=== PATIENT | female | born 1960 | race Caucasian/White ===

== ENCOUNTER 2023-07-08 12:41 | Outpatient (CLI) | payer BC ==
[2023-07-08 14:32] LABS: #Basophils 0.05 10x3/uL (0.0-0.2); #Eosinphils 0.02 10x3/uL (0.0-0.5); #Monocytes 0.49 10x3/uL (0.0-1.1); #Neutrophils 4.25 10x3/uL (1.5-8.4); %Basophils 0.8 % (0.0-2.0); %Eosinophils 0.3 % (0.0-6.0); %Monocytes 8.2 % (0.0-10.0); %Neutrophils 71.5 % (40.0-75.0); Hematocrit 43.5 % (34.9-44.5); Mean Corpuscular HGB CONC 34.5 g/dL (32.0-36.0); Mean Corpuscular Volume 101.6 fl (81.6-98.3); Mean Platelet Volume 9.8 fl (7.4-10.4); Platelet Count 271 10x3/uL (150-450); RBC Distribution Width 11.7 % (11.5-14.5); Red Blood Cell (RBC) Count 4.28 10x6/uL (3.90-5.03)
[2023-07-08 14:33] LABS: Anion Gap 14 mmol/L (10-20); BUN (Urea Nitrogen) 8 mg/dL (9.8-20.1); Calc. Creatinine Clearance 0 mL/min (70-130); Calcium 9.8 mg/dL (7.8-10.44); Carbon Dioxide 24 mmol/L (23-31); Chloride 104 mmol/L (98-107); Estimated GFR 99; Glucose 84 mg/dL (80-115); Potassium 4.3 mmol/L (3.5-5.1); Sodium 138 mmol/L (136-145)
== END 2023-07-08 12:42 | disposition home or self-care (01) ==
LOC: LABBT 12:41
PROVIDERS: ATTEND Orthopaedic Surgery Hand Surgery
DX: Z01.818 Encounter for other preprocedural examination (principal); S62.342A Nondisplaced fracture of base of third metacarpal bone, right hand, initial encounter for closed fracture; M72.0 Palmar fascial fibromatosis [Dupuytren]
CPT/HCPCS: 80048; 85025; 93005; 93010

== ENCOUNTER 2023-07-11 05:40 | Day surgery (SDC) | payer BC ==
[2023-07-08 13:50] VITALS: BMI 21.9
[2023-07-11] MEDS ORDERED: Bacitracin Zinc Ointment 30 gm TUBE ONE (06:43)
[2023-07-11] MEDS ORDERED: Bupivacaine PF 0.5% 30 ML VIAL ONE (06:43)
[2023-07-11] MEDS ORDERED: PROPOFOL 20 ML ONE (06:46)
[2023-07-11] MEDS ORDERED: Lidocaine 1% PF 5 ML VIAL ONE (06:46)
[2023-07-11] MEDS ORDERED: fentaNYL PF 100 MCG/2 ML SYRINGE ONE (06:46)
[2023-07-11] MEDS ORDERED: Ondansetron PF 4 MG/2 ML Vial ONE (06:46)
[2023-07-11] MEDS ORDERED: Midazolam HCl 2 mg/2 ml Vial ONE (06:46)
[2023-07-11] MEDS ORDERED: Dexamethasone 20 MG/5 ML VIAL ONE (06:46)
[2023-07-11] MEDS ORDERED: Lidocaine 2% 6 ML (Jelly) SYR ONE (06:48)
[2023-07-11] MEDS ORDERED: Sodium Chloride 0.9% 100 ML ONE (06:50)
[2023-07-11] MEDS ORDERED: CEFAZOLIN 2 GM VIAL ONE (06:50)
[2023-07-11] MEDS ORDERED: Ketorolac Tromethamine 30 MG (1 mL) VIAL ONE ×2 (08:39→08:49)
== END 2023-07-11 10:07 | disposition home or self-care (01) ==
LOC: SDC 05:40
PROVIDERS: ATTEND Orthopaedic Surgery Hand Surgery
PROC: 0PT Upper Bones, Resection (ICD-10-PCS; principal; 2023-07-11)
PROC: 0LN70ZZ Release Right Hand Tendon, Open Approach (ICD-10-PCS; principal; 2023-07-11)
PROC: 0JNJ0ZZ Release Right Hand Subcutaneous Tissue and Fascia, Open Approach (ICD-10-PCS; principal; 2023-07-11)
DX: M72.0 Palmar fascial fibromatosis [Dupuytren] (principal); M65.331 Trigger finger, right middle finger; M25.741 Osteophyte, right hand; S62.342A Nondisplaced fracture of base of third metacarpal bone, right hand, initial encounter for closed fracture; F41.9 Anxiety disorder, unspecified; G47.00 Insomnia, unspecified; F17.220 Nicotine dependence, chewing tobacco, uncomplicated; Z79.899 Other long term (current) drug therapy; X58.XXXA Exposure to other specified factors, initial encounter
CPT/HCPCS: 88304; A6223; J0665; J1100; J1885; J2250; J2405; J2704; J3490

== ENCOUNTER 2024-01-20 13:44 | Outpatient (CLI) | payer BC | END 2024-01-20 13:45 | disposition home or self-care (01) | LOC: SCSMRI 13:44 | PROVIDERS: ATTEND Orthopaedic Surgery Hand Surgery | DX: S69.91XA Unspecified injury of right wrist, hand and finger(s), initial encounter (principal); S63.591A Other specified sprain of right wrist, initial encounter; M65.831 Other synovitis and tenosynovitis, right forearm ==